=== PATIENT | female | born 1990 | race African-American/Black ===

== ENCOUNTER 2017-12-18 21:45 | Emergency (ER) | payer BC ==
[~2017-12-18] VITALS: Ht 169.5 cm; Wt 69.3 kg
[2017-12-18 21:52] VITALS: TEMP 36.9; Ht 169.5 cm; Wt 69.3 kg
[2017-12-18] MEDS ORDERED: AMOXICIL/CLAVU 875MG HOME PACK PO ONE (22:30)
[2017-12-18] MEDS ORDERED: AMOX875T PO (22:41)
--- NOTE | 2017-12-18 22:42 | EMERGENCY ROOM VISIT NOTE ---
History First contact with patient: 22:01 Chief Complaint: DENTAL PAIN Stated Complaint: SWOLLEN GUMS, DENTAL PAIN, COUGHING UP PHLEGM Nursing Triage Summary: Patient ambulatory to triage with an upright and steady gait, states "In the last two days, my mouth has become swollen and agitated. My left lower wisdom tooth came in recently. It hurts to talk and eat. The gum around that wisdom tooth is very swollen. I have also been coughing for the last three weeks. I am coughing up green phlegm every time I cough." History of Present Illness The patient is a 27 year old female who presents to the Emergency Room with complaints of dental pain and a cough. The patient reports that she has had pain in her left lower wisdom tooth for the past 2 days. She reports that she feels like the tooth has been breaking through the gums for the past few weeks. She feels that the gums are swollen. She reports that for the past 3 weeks, she has had a cough productive of green phlegm. She initially thought this was due to allergies but it has not improved. She rates her dental pain an 8/10. She has not seen a dentist in several years, but does state that the last time she saw when they recommended that she have her wisdom teeth removed. She states that her dental pain is worse when she is talking or eating. She denies shortness of breath. She denies any fevers or facial swelling. Review of Systems A complete 10 point review of systems was reviewed with the patient with pertinent positives and negatives as per history of present illness. All else were negative. Past Medical/Surgical History Medical Problems: (1) Bronchitis (2) Migraine headache (3) Pelvic inflammatory disease, female Family History Diabetes mellitus Hypertension Social History Smoking Status: Never Smoker Alcohol Use: occasionally Drug Use: none Marital Status: single Occupation Status: employed Current/Historical Medications Scheduled Amoxicillin & Pot Clavulanate (Augmentin 875-125 mg), 1 TAB PO BID Physical Exam Vital Signs Date Time Temp Pulse Resp B/P (MAP) Pulse Ox O2 Delivery O2 Flow Rate FiO2 12/18/17 22:57 78 20 98/54 98 12/18/17 21:52 36.9 68 20 112/73 100 Room Air Physical Exam VITALS: Vitals are noted on the nurse's note and reviewed by myself. Vital signs stable. GENERAL: This is a 27-year-old female, in no acute distress, nondiaphoretic, well-developed well-nourished. SKIN: The skin was without rashes. EARS: External auditory canals clear, tympanic membranes pearly faustin without erythema or effusion bilaterally. EYES: Pupils equal round and reactive to light and accommodation. . MOUTH: Mucous membranes moist. The left lower wisdom tooth appears to be impacted and there is mild edema of the surrounding gums. There is no evidence of abscess. No facial swelling. NECK: Supple without nuchal rigidity. No lymphadenopathy. HEART: Regular rate and rhythm without murmurs gallops or rubs. LUNGS: Clear to auscultation bilaterally without wheezes, rales or rhonchi. NEURO: Patient was alert and oriented to person place and time. Medical Decision & Procedures Medications Administered Medications (Trade) Dose Ordered Sig/Josse Route Start Time Stop Time Status Last Admin Dose Admin Amoxicillin/ Clavulanate Potassium (Augmentin 875MG Home Pack) 1 homepack UD ONCE PO 12/18/17 22:30 12/18/17 22:31 DC 12/18/17 22:53 1 HOMEPACK Medical Decision Differential diagnosis includes dental infection, dental abscess, Gage's angina, pneumonia, viral URI, among others. The patient was evaluated as above. She presents complaining of both dental pain and a cough. On exam, her left lower wisdom tooth does appear to be impacted and the gums are swollen surrounding this. The patient will be placed on antibiotics for presumed infection. The patient has also had a cough. I favor this is likely due to seasonal allergies and recommended the patient take a daily antihistamine. Lungs are clear on exam. The patient will be placed on Augmentin for her dental infection which would also cover pulmonary infection. She was advised to have close dental follow-up. She was agreeable to this treatment plan. She verbalized understanding of my assessment and treatment plan and was discharged home in good condition. Medication Reconcilliation Current Medication List: was personally reviewed by me Blood Pressure Screening Patient's blood pressure: Normal blood pressure Impression Primary Impression: Dentalgia Additional Impression: Cough Departure Information Dispostion Home / Self-Care Condition GOOD Prescriptions Amoxicillin & Pot Clavulanate (Augmentin 875-125 mg) 1 Tab Tab 1 TAB PO BID for 9 Days, #18 TAB Prov: Roseanna Hines ., JESSICA 12/18/17 Referrals [facility] (PCP) Patient Instructions My [facility] Additional Instructions You have been treated in the Emergency Department for Dental Pain and a cough. You were prescribed Augmentin to be taken twice daily for 10 days. This is an antibiotic. All antibiotics have the potential to cause diarrhea. Stop this medication and contact a medical provider if you were to develop any significant adverse side effects including: wheezing, shortness of breath, passing out, vomiting, or a diffuse rash. Always take antibiotics as directed and COMPLETE the ENTIRE course regardless of the improvement of your symptoms. For pain control, you can use the following [id number] medicines (if >12 yo): - Regular strength (325mg/tab) Tylenol (acetaminophen) 2 tabs every 4-6 hours as needed. Do not exceed 12 tablets in a 24 hour period. Avoid taking more than 4 grams (4000 mg) of Tylenol per day. This includes any other sources of acetaminophen you may take on a regular basis. - Regular strength (200 mg/tab) Advil (ibuprofen) 1-2 tabs every 4-6 hours as needed. Do not exceed a dose of 3200 mg per day. Refrain from smoking cigarettes or using chewing tobacco until you have been evaluated by your dentist. Keeping beverages lukewarm and consuming soft foods can decrease your pain. Warm compresses over the affected area may offer some relief. You MUST seek evaluation of your dental pain by a dentist following your visit to the Emergency Department. The Emergency Department is not capable of treating dental issues long-term. You should call your dentist as soon as possible to make an appointment for evaluation of your dental pain. You may follow up with Dr. Benitez, who is accepting new patients. [phone] [address] [facility], [address] Return to the emergency department if you develop the following symptoms despite treatment course outlined above: fever, intractable pain, increased redness, swelling, or purulent discharge. Problem Qualifiers
[2017-12-18 22:57] VITALS: BP 98/54; PULSE 78; O2SAT 98
== END 2017-12-18 22:57 | disposition home or self-care (01) ==
LOC: C.EDB 21:46
DX: K08.89 Other specified disorders of teeth and supporting structures (principal); R05 Cough